=== PATIENT | male | born 1935 | race Caucasian/White ===

== ENCOUNTER 2024-10-16 08:53 | Inpatient (IN) | payer MEDICARE, OTHER, MEDICAID, SELFPAY ==
[2024-10-16] VITALS (13 sets, daily range): BP systolic 98–138; BP diastolic 62–103; PULSE 58–76; RESP 13–18; TEMP 35.9–36.5; O2SAT 86–100; BMI 41.5
--- NOTE | 2024-10-16 09:12 | EKG12_ITS ---
Test Reason : CP Blood Pressure : */* mmHG Vent. Rate : 57 BPM Atrial Rate : 57 BPM P-R Int : 202 ms QRS Dur : 86 ms QT Int : 436 ms P-R-T Axes : 43 9 73 degrees QTcB Int : 424 ms Sinus bradycardia with Premature atrial complexes Otherwise normal ECG When compared with ECG of 16-Oct-2024 09:07, Premature atrial complexes are now Present Confirmed by NASIM MERCADO, LIBRA ([id number]), book or script editor DOROTHY CARRION ([id number]) on 10/20/2024 1:21:19 PM Referred By: ALLIE Confirmed By: LIBRA ROUSE MD
--- NOTE | 2024-10-16 09:12 | EKG12_ITS ---
Test Reason : CP Blood Pressure : */* mmHG Vent. Rate : 57 BPM Atrial Rate : 57 BPM P-R Int : 202 ms QRS Dur : 86 ms QT Int : 436 ms P-R-T Axes : 43 9 73 degrees QTcB Int : 424 ms Sinus bradycardia with Premature atrial complexes Otherwise normal ECG When compared with ECG of 16-Oct-2024 09:07, Premature atrial complexes are now Present Confirmed by NASIM MERCADO, LIBRA ([id number]), communications editor DOROTHY CARRION ([id number]) on 10/20/2024 1:21:19 PM Referred By: ALLIE Confirmed By: LIBRA ROUSE MD
--- NOTE | 2024-10-16 09:22 | HP.PCM.HOS_ITS ---
HPI - General General Date of Admission: 10/16/24 Date of Service: 10/16/24 Chief Complaint: PRECORDIAL Chest pain, left sided HPI Narrative We will RUBENS MORFIN, is a 89 M who is directly admitted from [facility] for chest pain located in midsternal to left precordial, localized 8- 9/10 pressure like with sweating. Patient stated he does not usually sleep at night and was watching TV and then he exerted himself to transfer from bed to wheelchair and took a lot of effort because of right AKA and then started having chest pain. He he also had associated mild shortness of breath, and sweating/diaphoresis but no palpitation or syncope. He denies previous chest pain, AK or cardiac stent. Thereafter he was transferred from half-way to [facility]. There twelve-lead EKG was done which reported normal sinus rhythm. Patient had elevated troponin, high sensitive troponin 467, 391, 513 and 602 at 0, 1:30, 2:20 and 3 hours respectively. When patient came in he again had chest pain and IV morphine and nitro ointment ordered. Past medical history: Right above-knee amputation in 2020. Dyslipidemia, major depressive disorder, morbid obesity, obstructive sleep apnea, chronic LE venous insufficiency and anxiety disorder. Family history: His father was a smoker. Social history: 50 pack years, quit 20 years ago. 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 Denies drinking. No substance use. Allergy: No known drug allergy [facility] Home Medications ?Medication ?Instructions ?Recorded ?Last Taken ?Type atorvastatin 10 mg tablet 10 mg PO DAILY hyperlipidemi a 10/16/24 Unknown History cholecalciferol (vitamin D3) 50 50 mcg PO DAILY vitami n deficiency 10/16/24 Unknown History mcg (2,000 unit) tablet furosemide 20 mg tablet 20 mg PO DAILY diuretic 07/08 Unknown History sertraline 50 mg tablet 50 mg PO DAILY depressive di sorder 10/16/24 Unknown History tamsulosin 0.4 mg capsule 0.4 mg PO DAILY BPH 10/16/24 Unknown History Allergy/AdvReac Type Severity Reaction Status Date / Time No Known Allergies Allergy Verified 10/16/24 09:13 Social History Smoking Status: Former smoker ROS ROS Narrative Constitutional: Reports fatigue and weakness. No fever. HEENT: Reports systems reviewed and no addt'l complaints, except as documented Respiratory/Chest: Mild shortness of breath during exertion at time of chest pain. Otherwise no chronic shortness of CVS: As described in HPI Gastrointestinal: Denies coffee ground emesis, hematemesis or vomiting Genitourinary: Denies burning urination or new urinary tract symptoms Musculoskeletal: Right above-knee amputation. Denies acute joint pain or limited range of motion. No acute injury Neurologic: Denies seizure-like symptoms. skin: Chronic venous insufficiency Endocrinology: Reports systems reviewed and no addt'l complaints, except as documented Hematologic/Lymphatic: Reports systems reviewed and no addt'l complaints, except as documented Rest 14 ROS are negative except as mentioned in HPI Vital Signs Vital Signs Vital Signs: Vitals: BP 121/82, heart rate 76/min, pulse ox 97% on room air. RR 16/min Physical Exam Narrative General: Alert, Oriented x3, Cooperative. BMI 41.6 kg/m?, obesity grade 3 HEENT: Atraumatic, PERRLA, EOMI, Normocephalic. Oral: No Gingival or Mucosal Lesions/ Ulcerations Neck: Supple, No JVD, Negative Carotid Bruits Chest wall/Lungs: Air entry diminished in bilateral lung bases. No crepitation/rhonchi Cardiovascular: Regular rate and rhythm, Normal S1,S2, No M/G/R Abdomen: Bowel Sounds Present, Soft, Non Tender, Non-Distended : No dysuria. No renal angle tenderness. No suprapubic tenderness. Extremities: Left lower leg, mild swelling/venous dilatation/varicose, Capillary Refill Less than 3 Seconds Skin: No rashes, No breakdown Musculoskeletal: Right above-knee amputation. Uses wheelchair for transfers. No Tenderness to Palpation of Joints or Extremities Neurological: Cranial nerves II-XII grossly intact, DTR 2+/4. No acute focal neurological deficit. Psych/Mental Status: N flat Results Lab / Micro Data 10/16/24 09:50 Assessment & Plan Assessment/Plan (1) Chest pain, atypical: PLAN: Plan 81-year-old gentleman admitted directly from [facility] for atypical chest pain left-sided with mild acid shortness of breath 1. Atypical chest pain with suspicion of non-STEMI: Patient is being admitted in PCU. Patient was started on IV. Pain in pulmonary hospital will continue it. Twelve-lead done here is NSR at 73 bpm, no obvious ST-T deviation to suggest acute ischemia/non-STEMI. MARIAH risk score is 3; 1 is for age, angina and troponin. Cycle cardiac enzymes. Operations Dispatcher consulted. Continue IV heparin drip, baby aspirin, metoprolol and high intensity statin ordered. 2. Unclear CKD stage III: [facility]. CBC normal limit. Platelet count 1 84K CMP shows creatinine 1.46, BUN 48, estimated GFR 46 mL/min therefore CKD probably stage III. IV fluid half-normal saline ordered. Sodium 142, K4.6, bicarb 24. 3.. Patient denies history of diabetes mellitus hyperglycemia, glucose 118. A1c ordered for tomorrow 4. Dyslipidemia: Atorvastatin 40 mg daily ordered. Fasting profile and TSH ordered. 5. 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 Uses wheelchair for transfers. 6. Other comorbidities include chronic venous insufficiency, anxiety and depression: Home medication reconciliation done Living will/advanced directive/end of life care: Patient does not have living will or advanced directive from half-way stating DNR CC arrest with multiple. No designated power of electronic intelligence officer for after discussion of benefits/risks procedures involved with full code, DNR CC arrest and DNR CC, the patient opted for DNR CC arrest with [id number] Patient doesn't want artificial life support including intubation, tube feed, ventilator and/chest compression, central venous catheter, vasopressor and DC shock if needed Total time spent in [id number] encounter in discussion of advanced directive 17 minutes. Charges/Coding Visit Charges Inpatient E&M: 54210 Init Hosp L3 Procedures Hospitalists Procedures: 05832 Advncd Care Plan 30 Min
--- NOTE | 2024-10-16 09:22 | HP.PCM.HOS_ITS ---
HPI - General General Date of Admission: 10/16/24 Date of Service: 10/16/24 Chief Complaint: PRECORDIAL Chest pain, left sided HPI Narrative We will RUBENS MORFIN, is a 89 M who is directly admitted from [facility] for chest pain located in midsternal to left precordial, localized 8- 9/10 pressure like with sweating. Patient stated he does not usually sleep at night and was watching TV and then he exerted himself to transfer from bed to wheelchair and took a lot of effort because of right AKA and then started having chest pain. He he also had associated mild shortness of breath, and sweating/diaphoresis but no palpitation or syncope. He denies previous chest pain, PR or cardiac stent. [facility]. There twelve-lead EKG was done which reported normal sinus rhythm. Patient had elevated troponin, high sensitive troponin 467, 391, 513 and 602 at 0, 1:30, 2:20 and 3 hours respectively. When patient came in he again had chest pain and IV morphine and nitro ointment ordered. Past medical history: Right above-knee amputation in 2020. Dyslipidemia, major depressive disorder, morbid obesity, obstructive sleep apnea, chronic LE venous insufficiency and anxiety disorder. Family history: His father was a smoker. Social history: 50 pack years, quit 20 years ago. 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 Denies drinking. No substance use. Allergy: No known drug allergy [facility] Home Medications ?Medication ?Instructions ?Recorded ?Last Taken ?Type atorvastatin 10 mg tablet 10 mg PO DAILY hyperlipidemi a 10/16/24 Unknown History cholecalciferol (vitamin D3) 50 50 mcg PO DAILY vitami n deficiency 10/16/24 Unknown History mcg (2,000 unit) tablet furosemide 20 mg tablet 20 mg PO DAILY diuretic 07/08 Unknown History sertraline 50 mg tablet 50 mg PO DAILY depressive di sorder 10/16/24 Unknown History tamsulosin 0.4 mg capsule 0.4 mg PO DAILY BPH 10/16/24 Unknown History Allergy/AdvReac Type Severity Reaction Status Date / Time No Known Allergies Allergy Verified 10/16/24 09:13 Social History Smoking Status: Former smoker ROS ROS Narrative Constitutional: Reports fatigue and weakness. No fever. HEENT: Reports systems reviewed and no addt'l complaints, except as documented Respiratory/Chest: Mild shortness of breath during exertion at time of chest pain. Otherwise no chronic shortness of CVS: As described in HPI Gastrointestinal: Denies coffee ground emesis, hematemesis or vomiting Genitourinary: Denies burning urination or new urinary tract symptoms Musculoskeletal: Right above-knee amputation. Denies acute joint pain or limited range of motion. No acute injury Neurologic: Denies seizure-like symptoms. skin: Chronic venous insufficiency Endocrinology: Reports systems reviewed and no addt'l complaints, except as documented Hematologic/Lymphatic: Reports systems reviewed and no addt'l complaints, except as documented Rest 14 ROS are negative except as mentioned in HPI Vital Signs Vital Signs Vital Signs: Vitals: BP 121/82, heart rate 76/min, pulse ox 97% on room air. RR 16/min Physical Exam Narrative General: Alert, Oriented x3, Cooperative. BMI 41.6 kg/m?, obesity grade 3 HEENT: Atraumatic, PERRLA, EOMI, Normocephalic. Oral: No Gingival or Mucosal Lesions/ Ulcerations Neck: Supple, No JVD, Negative Carotid Bruits Chest wall/Lungs: Air entry diminished in bilateral lung bases. No crepitation/rhonchi Cardiovascular: Regular rate and rhythm, Normal S1,S2, No M/G/R Abdomen: Bowel Sounds Present, Soft, Non Tender, Non-Distended : No dysuria. No renal angle tenderness. No suprapubic tenderness. Extremities: Left lower leg, mild swelling/venous dilatation/varicose, Capillary Refill Less than 3 Seconds Skin: No rashes, No breakdown Musculoskeletal: Right above-knee amputation. Uses wheelchair for transfers. No Tenderness to Palpation of Joints or Extremities Neurological: Cranial nerves II-XII grossly intact, DTR 2+/4. No acute focal neurological deficit. Psych/Mental Status: N flat Results Lab / Micro Data 10/16/24 09:50 Assessment & Plan Assessment/Plan (1) Chest pain, atypical: PLAN: Plan 81-year-old gentleman admitted directly from [facility] for atypical chest pain left-sided with mild acid shortness of breath 1. Atypical chest pain with suspicion of non-STEMI: Patient is being admitted in PCU. Patient was started on IV. Pain in pulmonary hospital will continue it. Twelve-lead done here is NSR at 73 bpm, no obvious ST-T deviation to suggest acute ischemia/non-STEMI. MARIAH risk score is 3; 1 is for age, angina and troponin. Cycle cardiac enzymes. Cracker Sprayer consulted. Continue IV heparin drip, baby aspirin, metoprolol and high intensity statin ordered. 2. Unclear CKD stage III: Labs in the [facility] pulmonary viewed. CBC normal limit. Platelet count 1 84K CMP shows creatinine 1.46, BUN 48, estimated GFR 46 mL/min therefore CKD probably stage III. IV fluid half-normal saline ordered. Sodium 142, K4.6, bicarb 24. 3.. Patient denies history of diabetes mellitus hyperglycemia, glucose 118. A1c ordered for tomorrow 4. Dyslipidemia: Atorvastatin 40 mg daily ordered. Fasting profile and TSH ordered. 5. 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 Uses wheelchair for transfers. 6. Other comorbidities include chronic venous insufficiency, anxiety and depression: Home medication reconciliation done Living will/advanced directive/end of life care: Patient does not have living will or advanced directive from [facility] stating DNR CC arrest with multiple. No designated power of estate planning attorney for after discussion of benefits/risks procedures involved with full code, DNR CC arrest and DNR CC, the patient opted for DNR CC arrest with [id number] Patient doesn't want artificial life support including intubation, tube feed, ventilator and/chest compression, central venous catheter, vasopressor and DC shock if needed Total time spent in [id number] encounter in discussion of advanced directive 17 minutes. Charges/Coding Visit Charges Inpatient E&M: 51215 Init Hosp L3 Procedures Hospitalists Procedures: [id number] Advncd Care Plan 30 Min
[2024-10-16] MEDS: Nitroglycerin Oint 1 INCH PACKET TD (09:23)
--- NOTE | 2024-10-16 09:53 | ECHOD_ITS ---
Reason For Study Reason For Study: NSTEMI Procedure This was a 2D Doppler, Color Flow transthoracic echocardiogram. Exam performed portable in patient room. Left Ventricle Mildly dilated left ventricle. The estimated ejection fraction is 35???40 %. Right Ventricle Normal right ventricle. Normal systolic function. Atria The left atrium is mildly enlarged. Normal right atrium. Mitral Valve The mitral valve is structurally normal. No prolapse or stenosis seen. Mild (1+) eccentric mitral valve insufficiency. Tricuspid Valve Normal tricuspid valve. Aortic Valve Trisinus/trileaflet aortic valve. Pulmonic Valve The pulmonic valve is not well visualized. Great Vessels The aortic root is not well visualized. Pericardium/Pleural No pericardial effusion. MMode/2D Measurements & Calculations LAV(MOD-bp): 48.9 ml LVAd ap4: 28.9 cm2 SV(MOD-sp4): 33.6 ml LAV(MOD-bp) Indexed: 21.0 ml/m2 LVLd ap4: 8.3 cm SI(MOD-sp4): 14.4 ml/m2 LAV(MOD-sp2): 59.9 ml EDV(MOD-sp4): 84.1 ml LAV(MOD-sp4): 35.7 ml EDV(sp4-el): 85.0 ml LVAs ap4: 21.6 cm2 LVLs ap4: 8.0 cm ESV(MOD-sp4): 50.6 ml ESV(sp4-el): 49.1 ml EF(MOD-sp4): 39.9 % EF(sp4-el): 42.2 % SV(sp4-el): 35.9 ml LA A4 area: 14.8 cm2 RA A4 area: 11.5 cm2 Doppler Measurements & Calculations MV E max rachelle: 59.5 cm/sec Ao V2 max: 144.1 cm/sec LV V1 max: 100.5 cm/sec Ao max P.5 mmHg LV V1 max P.2 mmHg Ao V2 mean: 104.7 cm/sec LV V1 mean P.5 mmHg Ao mean P.0 mmHg LV V1 mean: 73.9 cm/sec Ao V2 VTI: 31.4 cm LV V1 VTI: 19.1 cm AV (velocity ratio): 0.61 ECHO/Echo Complete Interpretation Summary The estimated ejection fraction is 35???40 %. Apical hypokinesia Mild MR No prior echo to compare. Ordering Physician: Wei Hanley Referring Physician: SANDRA PCP Performed By: Lo Santiago and Student
[2024-10-16 10:10] LABS: Hematocrit 40.4 % (40-54); Hemoglobin 13.6 g/dL (13.0-16.5); Mean Corp Hgb Conc 33.7 g/dL (32-36); Mean Corpuscular Volume 87.6 fL (80-94); Mean Platelet Vol. 9.8 fl (6.2-12.0); Platelet Count 157 K/mm3 (150-450); RBC Distribution Width CV 13.2 % (11.6-14.6); RBC Distribution Width SD 42.0 fl (35.1-43.9); Red Blood Count 4.61 M/mm3 (4.6-6.2); White Blood Count 8.5 K/mm3 (4.4-11.0)
[2024-10-16 10:52] LABS: Cholesterol 112 mg/dL (<=200); Low Density Lipoprotein Calc. 33 mg/dL; Magnesium 2.2 mg/dL (1.5-2.2); Triglycerides 70 mg/dL; Very Low Density Lipoprotein 14 mg/dL (5-40); cholesterol:hdl ratio screen 1.73
[2024-10-16 11:10] LABS: Troponin T High Sensitivity 131 ng/L (<=22)
[2024-10-16] MEDS: 0.45% Normal Saline 1,000 ML 100 ML IV (11:12)
[2024-10-16] MEDS: Aspirin E.C. 81 MG Tablet PO (11:12)
[2024-10-16] MEDS: HEPARIN/D5w 25,000 UNITS 25,000 UNITS/250 ML IV.SOLN. 10 UNITS CONT INF (11:13)
[2024-10-16 12:38] LABS: Troponin T High Sens 2 HR 149 ng/L (<=22)
--- NOTE | 2024-10-16 13:14 | PCM.CONS.C ---
Assessment & Plan Assessment/Plan (1) Acute non-ST elevation myocardial infarction (NSTEMI): PLAN: 89-year-old patient transferred from [facility] with symptoms of chest pain And elevated cardiac markers with high sensitive troponins. Patient describes retrosternal chest discomfort No specific radiation. 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 I review all the current evaluation including EKG current lab results. He has elevated high sensitive troponins Started on treatment with aspirin atorvastatin heparin And evaluated further with echocardiogram which showed reduced LV systolic function Ejection fraction in the range of 35-40% with apical hypokinesia. Cardiac care plan; This patient has non-ST elevation [place] based on his symptoms of chest pain, abnormal EKG with mild ST change in the anterior lead. Otherwise normal sinus rhythm. The elevated cardiac biomarkers and abnormal echocardiogram With segmental wall motion abnormality apical hypokinesia recommended to proceed and evaluate further with cardiac catheterization Approach will be right radial artery approach. Further plan will be based on his finding of cardiac catheterization. 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 Based on the clinical presentation very high risk 89-year-old patient with symptoms of chest pain and non-ST elevation [place] will continue medical therapy with aspirin and nitroglycerin as needed and heparin infusion. And I discussed the case of transfer with the tertiary cardiac facility/[facility] for high risk PCI of the critical LAD diagonal as well as elective possible circumflex and RCA which is a large dominant vessel Patient was stable in the Head Inspector he does not have any further episode of chest pain. We used a very minimal amount of contrast a total of 60 cc to perform the full cardiac catheterization Also we did aortic valve placed the catheter in the mid ventricle with LVEDP measuring 24 mmHg on pullback no systolic gradient across aortic valve. Carolyn Nj MD,FAC,[facility] girl friday HPI Consult Data Date of Consult: 10/16/24 HPI Narrative Reason for Consultation: Chest pain/non-STEMI HPI Narrative: RUBENS MORFIN, is a 89 M who presents [facility] Home Medications ?Medication ?Instructions ?Recorded ?Last Taken ?Type atorvastatin 10 mg tablet 10 mg PO DAILY hyperlipidemia 10/16/24 Unknown History cholecalciferol (vitamin D3) 50 50 mcg PO DAILY vitamin deficiency 10/16/24 Unknown History mcg (2,000 unit) tablet furosemide 20 mg tablet 20 mg PO DAILY diuretic 10/16/24 Unknown History sertraline 50 mg tablet 50 mg PO DAILY depressive disorder 10/16/24 Unknown History tamsulosin 0.4 mg capsule 0.4 mg PO DAILY BPH 10/16/24 Unknown History Allergy/AdvReac Type Severity Reaction Status Date / Time No Known Allergies Allergy Verified 10/16/24 09:13 Social History Smoking Status: Former smoker Physical Exam Cardio Cardio Narrative: Patient seen and evaluated at bedside along with the nursing staff Has right above-knee amputation No symptoms of chest pain at time of evaluation supervisor tumbling and rolling showed normal sinus Cardiac exam S1-S2 is regular No systolic or diastolic murmur Chest exam clear auscultation bilaterally Risk Stratification Risk Stratification Applicable: No Objective Data Vital Signs: Vital Signs Temp Pulse Resp BP Pulse Ox O2 Del Method O2 Flow Rate 97.7 F L 67 16 120/62 97 Room Air 2 10/16/24 09:51 10/16/24 11:20 10/16/24 09:51 10/16/24 11:20 10/16/24 11:20 10/16/24 11:20 10/16/24 09:51 Oxygen Flow Rate (L/min) 2 Oxygen Delivery Method Room Air Weight: 273 lb 5.971 oz Body Mass Index (BMI) 41.5 Intake & Output: Intake and Output for Last 24 Hours 10/14/24 10/15/24 10/16/24 23:59 23:59 23:59 Intake Total 179.50 / 179.50 Balance 179.50 / 179.50 Lab / Micro Data 10/16/24 09:50 Labs: Laboratory Results - last 24 hr 10/16/24 09:50: WBC 8.5, RBC 4.61, Hgb 13.6, Hct 40.4, MCV 87.6, MCH 29.5, MCHC 33.7, RDW Std Deviation 42.0, RDW Coeff of Didier 13.2, Plt Count 157, MPV 9.8, Magnesium 2.2, Troponin T High Sens 131 H*, Triglycerides 70, Cholesterol 112, LDL Cholesterol, Calc 33, VLDL Cholesterol 14, HDL Cholesterol 65, Cholesterol/HDL Ratio 1.73, TSH 1.500 10/16/24 11:52: Troponin T Hi Sens 2 Hr 149 H* Cardiology Labs/Tests 10/16/24 09:50: WBC 8.5, RBC 4.61, Hgb 13.6, Hct 40.4, MCV 87.6, MCH 29.5, MCHC 33.7, Plt Count 157, MPV 9.8, Magnesium 2.2, Triglycerides 70, Cholesterol 112, VLDL Cholesterol 14, HDL Cholesterol 65, Cholesterol/HDL Ratio 1.73 Rhythm: EKG: ECHO: Stress Test: Cardiac Cath: PCI: CT Surgery: Holter monitor: EPS: PPM: CXR: Chest CT Scan: Radiography Diagnostic Testing: Radiology Impression Echocardiogram 10/16/24 09:53 Interpretation Summary The estimated ejection fraction is 35???40 %. Apical hypokinesia Mild MR No prior echo to compare. Ordering Physician: Wei Hanley Referring Physician: NO PCP Performed By: Lo Santiago and Student
--- NOTE | 2024-10-16 13:14 | PCM.CONS.C ---
Assessment & Plan Assessment/Plan (1) Acute non-ST elevation myocardial infarction (NSTEMI): PLAN: 89-year-old patient transferred from [facility] with symptoms of chest pain And elevated cardiac markers with high sensitive troponins. Patient describes retrosternal chest discomfort No specific radiation. 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 I review all the current evaluation including EKG current lab results. He has elevated high sensitive troponins Started on treatment with aspirin atorvastatin heparin And evaluated further with echocardiogram which showed reduced LV systolic function Ejection fraction in the range of 35-40% with apical hypokinesia. Cardiac care plan; This patient has non-ST elevation VT based on his symptoms of chest pain, abnormal EKG with mild ST change in the anterior lead. Otherwise normal sinus rhythm. The elevated cardiac biomarkers and abnormal echocardiogram With segmental wall motion abnormality apical hypokinesia recommended to proceed and evaluate further with cardiac catheterization Approach will be right radial artery approach. Further plan will be based on his finding of cardiac catheterization. 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 Based on the clinical presentation very high risk 89-year-old patient with symptoms of chest pain and non-ST elevation VT will continue medical therapy with aspirin and nitroglycerin as needed and heparin infusion. And I discussed the case of transfer with the tertiary cardiac facility/[facility] for high risk PCI of the critical LAD diagonal as well as elective possible circumflex and RCA which is a large dominant vessel Patient was stable in the Student Services Counselor he does not have any further episode of chest pain. We used a very minimal amount of contrast a total of 60 cc to perform the full cardiac catheterization Also we did aortic valve placed the catheter in the mid ventricle with LVEDP measuring 24 mmHg on pullback no systolic gradient across aortic valve. Carolyn jN MD,FAC,[facility] retanner HPI Consult Data Date of Consult: 10/16/24 HPI Narrative Reason for Consultation: Chest pain/non-STEMI HPI Narrative: RUBENS MORFIN, is a 89 M who presents [facility] Home Medications ?Medication ?Instructions ?Recorded ?Last Taken ?Type atorvastatin 10 mg tablet 10 mg PO DAILY hyperlipidemia 10/16/24 Unknown History cholecalciferol (vitamin D3) 50 50 mcg PO DAILY vitamin deficiency 10/16/24 Unknown History mcg (2,000 unit) tablet furosemide 20 mg tablet 20 mg PO DAILY diuretic 10/16/24 Unknown History sertraline 50 mg tablet 50 mg PO DAILY depressive disorder 10/16/24 Unknown History tamsulosin 0.4 mg capsule 0.4 mg PO DAILY BPH 10/16/24 Unknown History Allergy/AdvReac Type Severity Reaction Status Date / Time No Known Allergies Allergy Verified 10/16/24 09:13 Social History Smoking Status: Former smoker Physical Exam Cardio Cardio Narrative: Patient seen and evaluated at bedside along with the nursing staff Has right above-knee amputation No symptoms of chest pain at time of evaluation monitoring engineer showed normal sinus Cardiac exam S1-S2 is regular No systolic or diastolic murmur Chest exam clear auscultation bilaterally Risk Stratification Risk Stratification Applicable: No Objective Data Vital Signs: Vital Signs Temp Pulse Resp BP Pulse Ox O2 Del Method O2 Flow Rate 97.7 F L 67 16 120/62 97 Room Air 2 10/16/24 09:51 10/16/24 11:20 10/16/24 09:51 10/16/24 11:20 10/16/24 11:20 10/16/24 11:20 10/16/24 09:51 Oxygen Flow Rate (L/min) 2 Oxygen Delivery Method Room Air Weight: 273 lb 5.971 oz Body Mass Index (BMI) 41.5 Intake & Output: Intake and Output for Last 24 Hours 10/14/24 10/15/24 10/16/24 23:59 23:59 23:59 Intake Total 179.50 / 179.50 Balance 179.50 / 179.50 Lab / Micro Data 10/16/24 09:50 Labs: Laboratory Results - last 24 hr 10/16/24 09:50: WBC 8.5, RBC 4.61, Hgb 13.6, Hct 40.4, MCV 87.6, MCH 29.5, MCHC 33.7, RDW Std Deviation 42.0, RDW Coeff of Didier 13.2, Plt Count 157, MPV 9.8, Magnesium 2.2, Troponin T High Sens 131 H*, Triglycerides 70, Cholesterol 112, LDL Cholesterol, Calc 33, VLDL Cholesterol 14, HDL Cholesterol 65, Cholesterol/HDL Ratio 1.73, TSH 1.500 10/16/24 11:52: Troponin T Hi Sens 2 Hr 149 H* Cardiology Labs/Tests 10/16/24 09:50: WBC 8.5, RBC 4.61, Hgb 13.6, Hct 40.4, MCV 87.6, MCH 29.5, MCHC 33.7, Plt Count 157, MPV 9.8, Magnesium 2.2, Triglycerides 70, Cholesterol 112, VLDL Cholesterol 14, HDL Cholesterol 65, Cholesterol/HDL Ratio 1.73 Rhythm: EKG: ECHO: Stress Test: Cardiac Cath: PCI: CT Surgery: Holter monitor: EPS: PPM: CXR: Chest CT Scan: Radiography Diagnostic Testing: Radiology Impression Echocardiogram 10/16/24 09:53 Interpretation Summary The estimated ejection fraction is 35???40 %. Apical hypokinesia Mild MR No prior echo to compare. Ordering Physician: Wei Hanley Referring Physician: NO PCP Performed By: Lo Santiago and Student
--- NOTE | 2024-10-16 14:09 | PCIREPORT_ITS ---
PCI Cardiac Cath Report PCI Report: Left heart catheterization; 1. Moderate sedation 2. Left coronary angiography 3. Right coronary angiography 4. Measurement of LVEDP 5. Pullback pressure from LV to the ascending aorta 6. Placement of TR band to close the right radial artery arteriotomy site. Preprocedure diagnosis; 89-year-old patient was transferred over here to [facility] from outside facility with symptoms of chest pain and change in the EKG In addition to elevated troponin T high sensitive. Patient has been on treatment with heparin aspirin and atorvastatin. And evaluated today by echocardiogram which showed wall motion abnormality apical hypokinesia with ejection fraction in the range of 35-40% Patient has elevated creatinine of 1.46. Is high sensitive troponin is 131 ng/L. Consent; Risk and benefits of the procedure explained detail patient reacted to proceed informed consent obtained. Diagnostics reviewed; 5 [place] catheter 5 [place] JR4. Procedure in detail; Patient brought to the Mechanical Systems Designer in fasting state Right radial artery area prepped and draped in the usual sterile fashion. We proceeded with access to the right radial artery and a 6 [place] sheath placed in the right radial artery A cocktail of verapamil, heparin as well as nitroglycerin was given through the sheath. Then we proceeded with our diagnostic catheter using 5 [place] catheter Advancing aorta cannulated the left main without difficulty Multiple views of the left coronary system were obtained. Following this the same catheter was used to engage the right coronary ostium and multiple views of the RCA were obtained. Then we exchanged the catheter to 5 [place] JR4 advancing over time placed in the mid ventricle, measurement of LVEDP and pullback pressure was performed. Following this all catheter removed hemostasis maintained with TR band to the right radial artery area with no complication in the Mechanical Systems Designer. Hemodynamics; LVEDP measuring 24 mmHg No systolic gradient across aortic valve. Coronary angiography 1. Calcified left main with extension of calcification to LAD. Left main has proximal around 20-30%. Left main trifurcates into LAD, ramus intermedius and left circumflex. Mid LAD had subtotal 99% stenosis very critical at the site of moderate D1 as well as moderate septal branch Followed by an eccentric lesion of around 60%. LAD has a good distal target and reach all the way to the apex with a bundle septal branches Ramus intermedius has proximal 30 to 40% is a large vessel Left circumflex moderate to large in the mid segment of the left circumflex artery there is a bifurcation lesion at the OM1 of around 70% RCA large dominant proximal LAD 70% Conclusion recommendation 89-year-old patient with symptoms of chest pain change in the EKG and elevated high sensitive troponins With a clinical diagnosis of non-ST elevation MT Patient has severe multivessel CAD with critical lesions involving the mid LAD. And a bifurcation of OM1 and a proximal RCA. We used only 60 cc of contrast for this left heart catheterization As patient has elevated creatinine of 1.46 Started on IV fluid Of note by echocardiogram patient has EF in the range of 35 to 40% with apical hypokinesia As well as elevated LVEDP to 24 mmHg. I discussed the transfer with tertiary cardiac center With the plan of high risk PCI evaluation versus CABG. Patient will be more suitable to high risk PCI. With a focus on the mid LAD initially. Patient tolerated procedure very well with no complication in the Mechanical Systems Designer Carolyn Nj MD,FACC,[facility] disposal operator
--- NOTE | 2024-10-16 14:09 | PCIREPORT_ITS ---
PCI Cardiac Cath Report PCI Report: Left heart catheterization; 1. Moderate sedation 2. Left coronary angiography 3. Right coronary angiography 4. Measurement of LVEDP 5. Pullback pressure from LV to the ascending aorta 6. Placement of TR band to close the right radial artery arteriotomy site. Preprocedure diagnosis; 89-year-old patient was transferred over here to [facility] from outside facility with symptoms of chest pain and change in the EKG In addition to elevated troponin T high sensitive. Patient has been on treatment with heparin aspirin and atorvastatin. And evaluated today by echocardiogram which showed wall motion abnormality apical hypokinesia with ejection fraction in the range of 35-40% Patient has elevated creatinine of 1.46. Is high sensitive troponin is 131 ng/L. Consent; Risk and benefits of the procedure explained detail patient reacted to proceed informed consent obtained. Diagnostics reviewed; 5 [place] catheter 5 [place]i JR4. Procedure in detail; Patient brought to the Fire Prevention Specialist in fasting state Right radial artery area prepped and draped in the usual sterile fashion. We proceeded with access to the right radial artery and a 6 [place]i sheath placed in the right radial artery A cocktail of verapamil, heparin as well as nitroglycerin was given through the sheath. Then we proceeded with our diagnostic catheter using 5 [place] catheter Advancing aorta cannulated the left main without difficulty Multiple views of the left coronary system were obtained. Following this the same catheter was used to engage the right coronary ostium and multiple views of the RCA were obtained. Then we exchanged the catheter to 5 [place]i JR4 advancing over time placed in the mid ventricle, measurement of LVEDP and pullback pressure was performed. Following this all catheter removed hemostasis maintained with TR band to the right radial artery area with no complication in the Fire Prevention Specialist. Hemodynamics; LVEDP measuring 24 mmHg No systolic gradient across aortic valve. Coronary angiography 1. Calcified left main with extension of calcification to LAD. Left main has proximal around 20-30%. Left main trifurcates into LAD, ramus intermedius and left circumflex. Mid LAD had subtotal 99% stenosis very critical at the site of moderate D1 as well as moderate septal branch Followed by an eccentric lesion of around 60%. LAD has a good distal target and reach all the way to the apex with a bundle septal branches Ramus intermedius has proximal 30 to 40% is a large vessel Left circumflex moderate to large in the mid segment of the left circumflex artery there is a bifurcation lesion at the OM1 of around 70% RCA large dominant proximal LAD 70% Conclusion recommendation 89-year-old patient with symptoms of chest pain change in the EKG and elevated high sensitive troponins With a clinical diagnosis of non-ST elevation MD Patient has severe multivessel CAD with critical lesions involving the mid LAD. And a bifurcation of OM1 and a proximal RCA. We used only 60 cc of contrast for this left heart catheterization As patient has elevated creatinine of 1.46 Started on IV fluid Of note by echocardiogram patient has EF in the range of 35 to 40% with apical hypokinesia As well as elevated LVEDP to 24 mmHg. I discussed the transfer with tertiary cardiac center With the plan of high risk PCI evaluation versus CABG. Patient will be more suitable to high risk PCI. With a focus on the mid LAD initially. Patient tolerated procedure very well with no complication in the Fire Prevention Specialist Carolyn Nj MD,FACC,[facility] administrative and program specialist
--- NOTE | 2024-10-16 15:01 | CHAPLAIN ---
Type of Pastoral Visit ___ Initial Visit ___ Follow-up Visit ___ On-call Visit ___ General Patient Visit ___ Spiritual Assessment ___ Family Conference ___ Bereavement ___ Rapid Response ___ Code Blue ___ Other (describe below) Pastoral Care Referral From ___ Patient ___ Family ___ Nurse ___ Physician ___ [employer] Insurance Agent ___ Basket Machine Operator ___ Other (describe below) Sacrament/Intervention ___ Active listening ___ Anointing ___ Episcopal ___ Bereavement ___ Communion ___ Meli exploration ___ ___ Life review ___ Prayer ___ Reconciliation ___ Sacrament of Sick ___ Supportive presence ___ Wedding ___ Other (describe below) Pastoral Comments patient and bed are out of the room; a calling card is left for the patient
[2024-10-16 16:22] LABS: Troponin T High Sens 4 HR 148 ng/L (<=22)
--- NOTE | 2024-10-16 21:59 | NURSING ---
Call placed to Marci, Daughter, per pt. Updated Marci with pt.'s transfer information and gave bed number and phone number for unit. Marci thanked me for the call and update.
--- NOTE | 2024-10-17 07:46 | DS.PCM_ITS ---
Providers Date of Admission: 10/16/24 Date of Discharge: 10/16/24 Primary Care Physician: Dr. Analy Mae MD Consultations 10/16/24 09:53 Consult: Cardiology Routine Consulting Provider: Carolyn Nj Reason for Consult: Chest Pain/NSTEMI EMERGENT Consult: No MD Notified: Yes Date Notified: 10/16/24 Time Notified: 09:29 Method of Notification: Verbal Reason For Visit: NSTEMI Diagnosis Discharge Diagnosis (1) Chest pain, atypical: Status: Acute Code(s): R07.89 - Other chest pain Plan 81-year-old gentleman admitted directly from [facility] for atypical chest pain left-sided with mild acid shortness of breath 1. Atypical chest pain with suspicion of non-STEMI: Patient is being admitted in PCU. Patient was started on IV. Pain in pulmonary hospital will continue it. Twelve-lead done here is NSR at 73 bpm, no obvious ST-T deviation to suggest acute ischemia/non-STEMI. MARIAH risk score is 3; 1 is for age, angina and troponin. Cycle cardiac enzymes. Psychiatric Mental Health Nurse consulted. Continue IV heparin drip, baby aspirin, metoprolol and high intensity statin ordered. Serial troponin shows high 131 and 149. Patient was taken for Research Chief Engineer. Fasting profile LDL 33, HDL 65. TSH normal 1.5 Patient had minimal contrast 60 mL. Discussed with the allied health teacher about cath findings. 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 OM1 around 70%. RCA 70%. Echo has wall motion abnormality with EF in the range of 35 to 40% and apical hypokinesia. Mild MR. Psychiatric Mental Health Nurse Dr. Welch already talked to [facility] for transfer and the accepted the patient. Patient transferred to [facility] at 2256 hrs. on 10/16/2024. 2. Unclear CKD stage III: Labs in the [facility] pulmonary viewed. CBC normal limit. Platelet count 1 84K CMP shows creatinine 1.46, BUN 48, estimated GFR 46 mL/min therefore CKD probably stage III. IV fluid half-normal saline ordered. Sodium 142, K4.6, bicarb 24. 3.. Patient denies history of diabetes mellitus hyperglycemia, glucose 118. A1c ordered for tomorrow 4. Dyslipidemia: Atorvastatin 40 mg daily ordered. Fasting profile and TSH ordered. 5. 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 Uses wheelchair for transfers. 6. Other comorbidities include chronic venous insufficiency, anxiety and depression: Home medication reconciliation done Living will/advanced directive/end of life care: Patient does not have living will or advanced directive from skilled nursing stating DNR CC arrest with multiple. No designated power of divorce attorney for after discussion of benefits/risks procedures involved with full code, DNR CC arrest and DNR CC, the patient opted for DNR CC arrest with [id number] Patient doesn't want artificial life support including intubation, tube feed, ventilator and/chest compression, central venous catheter, vasopressor and DC shock if needed Total time spent in [id number] encounter in discussion of advanced directive 17 minutes. Medications at Discharge Home Medications atorvastatin 10 mg tablet 10 mg PO DAILY hyperlipidemia 10/16/24 cholecalciferol (vitamin D3) 50 mcg (2,000 unit) tablet 50 mcg PO DAILY vitamin deficiency 10/16/24 furosemide 20 mg tablet 20 mg PO DAILY diuretic 10/16/24 sertraline 50 mg tablet 50 mg PO DAILY depressive disorder 10/16/24 tamsulosin 0.4 mg capsule 0.4 mg PO DAILY BPH 10/16/24 Physical Exam Narrative Patient was seen in the afternoon. Radial artery approach. No hematoma or bruise. Rest of the physical findings same as mentioned in H&P of the same day. Air entry bilateral equal. No crepitation or rhonchi Cardiovascular: Regular rate and rhythm, Normal S1,S2, No M/G/R Weight / BMI Weight Weight: 273 lb 5.971 oz Body Mass Index (BMI) 41.5 ABG / Lab / Microbiology Data 10/16/24 09:50 Laboratory: Laboratory Results - last 24 hr 10/16/24 14:50: Troponin T Hi Sens 4Hr 148 H* D/C Instructions DC O2, CPAP, BIPAP Needs Home O2 Discharge instructions: No Meaningful Use Info Meaningful Use Meaningful Use Diagnoses (Choose all that apply): None applicable Ischemic Stroke Statin Dosing Therapy Reference: STATIN DOSE THERAPY REFERENCE: * Patients > 75 years receive moderate or high dose statin therapy. * Patients 75 years or YOUNGER should receive HIGH intensity statin dose unless contraindicated. You will be required to document reason for non-treatment if statin daily dose does not meet guidelines. HIGH DOSE STATIN THERAPY DAILY Atorvastatin > than or = to 40 mg Rosuvastatin > than or = to 20 mg Amlodipine + Atorvastatin > than or = to 2.5/40 mg Ezetimibe + Simvastatin 10/80 mg Simvastatin 80mg Discharge Plan Admission Admit Date/Time: 10/16/24 09:18 Primary Reason for Your Visit: NSTEMI Attending Provider: Wei Hanley Primary Care Provider: Analy Mae Consulting Providers: Dewayne Correia; Carolyn Nj Discharge Orders/Prescriptions Prescriptions: No Action atorvastatin 10 mg tablet 10 mg PO DAILY cholecalciferol (vitamin D3) 50 mcg (2,000 unit) tablet 50 mcg PO DAILY furosemide 20 mg tablet 20 mg PO DAILY sertraline 50 mg tablet 50 mg PO DAILY tamsulosin 0.4 mg capsule 0.4 mg PO DAILY Referrals / Follow Up: Analy Mae MD [Primary Care Provider] - Disposition Disposition (needs filled in before D/C Order can be placed): [facility]
--- NOTE | 2024-10-17 07:46 | DS.PCM_ITS ---
Providers Date of Admission: 10/16/24 Date of Discharge: 10/16/24 Primary Care Physician: Dr. Analy Mae MD Consultations 10/16/24 09:53 Consult: Cardiology Routine Consulting Provider: Carolyn Nj Reason for Consult: Chest Pain/NSTEMI EMERGENT Consult: No MD Notified: Yes Date Notified: 10/16/24 Time Notified: 09:29 Method of Notification: Verbal Reason For Visit: NSTEMI Diagnosis Discharge Diagnosis (1) Chest pain, atypical: Status: Acute Code(s): R07.89 - Other chest pain Plan 81-year-old gentleman admitted directly from [facility] for atypical chest pain left-sided with mild acid shortness of breath 1. Atypical chest pain with suspicion of non-STEMI: Patient is being admitted in PCU. Patient was started on IV. Pain in pulmonary hospital will continue it. Twelve-lead done here is NSR at 73 bpm, no obvious ST-T deviation to suggest acute ischemia/non-STEMI. MARIAH risk score is 3; 1 is for age, angina and troponin. Cycle cardiac enzymes. Durability Technician consulted. Continue IV heparin drip, baby aspirin, metoprolol and high intensity statin ordered. Serial troponin shows high 131 and 149. Patient was taken for [employer]. Fasting profile LDL 33, HDL 65. TSH normal 1.5 Patient had minimal contrast 60 mL. Discussed with the ship steward about cath findings. 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 OM1 around 70%. RCA 70%. Echo has wall motion abnormality with EF in the range of 35 to 40% and apical hypokinesia. Mild MR. Durability Technician Dr. Welch already talked to [facility] for transfer and the accepted the patient. Patient transferred to [facility] at 2256 hrs. on 10/16/2024. 2. Unclear CKD stage III: Labs in the [facility] pulmonary viewed. CBC normal limit. Platelet count 1 84K CMP shows creatinine 1.46, BUN 48, estimated GFR 46 mL/min therefore CKD probably stage III. IV fluid half-normal saline ordered. Sodium 142, K4.6, bicarb 24. 3.. Patient denies history of diabetes mellitus hyperglycemia, glucose 118. A1c ordered for tomorrow 4. Dyslipidemia: Atorvastatin 40 mg daily ordered. Fasting profile and TSH ordered. 5. 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 Uses wheelchair for transfers. 6. Other comorbidities include chronic venous insufficiency, anxiety and depression: Home medication reconciliation done Living will/advanced directive/end of life care: Patient does not have living will or advanced directive from [place] [facility] stating DNR CC arrest with multiple. No designated power of trust and estates attorney for after discussion of benefits/risks procedures involved with full code, DNR CC arrest and DNR CC, the patient opted for DNR CC arrest with [id number] Patient doesn't want artificial life support including intubation, tube feed, ventilator and/chest compression, central venous catheter, vasopressor and DC shock if needed Total time spent in [id number] encounter in discussion of advanced directive 17 minutes. Medications at Discharge Home Medications atorvastatin 10 mg tablet 10 mg PO DAILY hyperlipidemia 10/16/24 cholecalciferol (vitamin D3) 50 mcg (2,000 unit) tablet 50 mcg PO DAILY vitamin deficiency 10/16/24 furosemide 20 mg tablet 20 mg PO DAILY diuretic 10/16/24 sertraline 50 mg tablet 50 mg PO DAILY depressive disorder 10/16/24 tamsulosin 0.4 mg capsule 0.4 mg PO DAILY BPH 10/16/24 Physical Exam Narrative Patient was seen in the afternoon. Radial artery approach. No hematoma or bruise. Rest of the physical findings same as mentioned in H&P of the same day. Air entry bilateral equal. No crepitation or rhonchi Cardiovascular: Regular rate and rhythm, Normal S1,S2, No M/G/R Weight / BMI Weight Weight: 273 lb 5.971 oz Body Mass Index (BMI) 41.5 ABG / Lab / Microbiology Data 10/16/24 09:50 Laboratory: Laboratory Results - last 24 hr 10/16/24 14:50: Troponin T Hi Sens 4Hr 148 H* D/C Instructions DC O2, CPAP, BIPAP Needs Home O2 Discharge instructions: No Meaningful Use Info Meaningful Use Meaningful Use Diagnoses (Choose all that apply): None applicable Ischemic Stroke Statin Dosing Therapy Reference: STATIN DOSE THERAPY REFERENCE: * Patients > 75 years receive moderate or high dose statin therapy. * Patients 75 years or YOUNGER should receive HIGH intensity statin dose unless contraindicated. You will be required to document reason for non-treatment if statin daily dose does not meet guidelines. HIGH DOSE STATIN THERAPY DAILY Atorvastatin > than or = to 40 mg Rosuvastatin > than or = to 20 mg Amlodipine + Atorvastatin > than or = to 2.5/40 mg Ezetimibe + Simvastatin 10/80 mg Simvastatin 80mg Discharge Plan Admission Admit Date/Time: 10/16/24 09:18 Primary Reason for Your Visit: NSTEMI Attending Provider: Wei Hanley Primary Care Provider: Analy Mae Consulting Providers: Dewayne Correia; Carolyn Nj Discharge Orders/Prescriptions Prescriptions: No Action atorvastatin 10 mg tablet 10 mg PO DAILY cholecalciferol (vitamin D3) 50 mcg (2,000 unit) tablet 50 mcg PO DAILY furosemide 20 mg tablet 20 mg PO DAILY sertraline 50 mg tablet 50 mg PO DAILY tamsulosin 0.4 mg capsule 0.4 mg PO DAILY Referrals / Follow Up: Analy Mae MD [Primary Care Provider] - Disposition Disposition (needs filled in before D/C Order can be placed): [facility]
== END 2024-10-16 22:15 | disposition short-term general hospital (02) | DRG 281 ==
PROVIDERS: Admitting Provider Internal Medicine; PCP Student in an Organized Health Care Education/Training Program; Visit Provider Internal Medicine
DX: I21.4 Non-ST elevation (NSTEMI) myocardial infarction (principal); Z68.41 Body mass index [BMI] 40.0-44.9, adult; E66.813 Obesity, class 3; Z66 Do not resuscitate; N18.30 Chronic kidney disease, stage 3 unspecified; F32.A Depression, unspecified; Z89.611 Acquired absence of right leg above knee; E78.5 Hyperlipidemia, unspecified; I25.119 Atherosclerotic heart disease of native coronary artery with unspecified angina pectoris; I87.2 Venous insufficiency (chronic) (peripheral); F41.9 Anxiety disorder, unspecified; Z79.899 Other long term (current) drug therapy; Z87.891 Personal history of nicotine dependence
CPT/HCPCS: 36415; 80061; 83735; 84443; 84484; 85027; 93005; 93306; 93454; 94668; 94762; 99152; 99153; Q9967; C1769; C1894